=== PATIENT | female | born 1950 | race Caucasian/White ===

== ENCOUNTER 2022-07-06 14:04 | Outpatient (CLI) | payer MEDICARE, BC, SELFPAY ==
[2022-07-06 10:14] LABS: Albumin* 4.2 g/dL (3.3-5.0)
[2022-07-06 10:15] LABS: Chloride* 106 mmol/L (96-114); Potassium* 4.3 mmol/L (3.6-5.1); Sodium* 142 mmol/L (135-149)
[2022-07-06 10:17] LABS: Aspartate Amino Transferase* 22 U/L (12-35); Bilirubin Total* 0.6 mg/dL (0.1-1.5); Carbon Dioxide* 30 mmol/L (20-32); Cholesterol* 166 mg/dL (90-199); Creatinine* 0.7 mg/dL (0.5-1.5); Estimated Glomerular Filt Rate 92 ml/min; Total Protein* 6.6 g/dL (6.0-8.3)
[2022-07-06 10:18] LABS: Alanine Aminotransferase* 19 U/L (4-35); Alkaline Phosphatase* 59 U/L (40-150); Blood Urea Nitrogen* 11 mg/dL (7-30); Calcium* 9.1 mg/dL (8.4-10.6); Glucose* 105 mg/dL (60-115); HDL Cholesterol* 69 mg/dL (>=50); LDL Cholesterol Calculated 80 mg/dL (<100); Triglycerides* 87 mg/dL (40-149)
[2022-07-06 10:32] LABS: Creatinine Urine 157.1 mg/dL
[2022-07-06 10:36] LABS: Microalbumin Creatinine Ratio 0 mg/g (0-30); Microalbumin Urine 1 mg/dL
== END 2022-07-06 14:05 | disposition home or self-care (01) ==
PROVIDERS: PCP Family Medicine; Visit Provider Family Medicine
DX: Z00.00 Encounter for general adult medical examination without abnormal findings (principal); E78.5 Hyperlipidemia, unspecified; I10 Essential (primary) hypertension; E11.9 Type 2 diabetes mellitus without complications
CPT/HCPCS: 80053; 80061; 82043; 82570

== ENCOUNTER 2023-01-09 07:44 | Outpatient (CLI) | payer MEDICARE, BC, SELFPAY | END 2023-01-09 07:45 | disposition home or self-care (01) | LOC: NFLDREF 01-13 09:44 | PROVIDERS: PCP Family Medicine; Visit Provider Family Medicine | DX: E11.9 Type 2 diabetes mellitus without complications (principal); E78.5 Hyperlipidemia, unspecified; I10 Essential (primary) hypertension; E55.9 Vitamin D deficiency, unspecified | CPT/HCPCS: 80053; 80061; 82306 ==

== ENCOUNTER 2023-08-07 08:03 | Outpatient (CLI) | payer MEDICARE, BC, SELFPAY | END 2023-08-07 08:04 | disposition home or self-care (01) | LOC: NFLDREF 08-09 13:01 | PROVIDERS: PCP Family Medicine; Referring Provider Family Medicine; Visit Provider Family Medicine | DX: Z01.419 Encounter for gynecological examination (general) (routine) without abnormal findings (principal); E11.9 Type 2 diabetes mellitus without complications; E55.9 Vitamin D deficiency, unspecified; I10 Essential (primary) hypertension; E78.5 Hyperlipidemia, unspecified | CPT/HCPCS: 80048; 80053; 80061; 82043; 82306; 82570 ==

== ENCOUNTER 2023-10-25 08:23 | Outpatient (CLI) | payer MEDICARE, BC, SELFPAY | END 2023-10-25 08:24 | disposition home or self-care (01) | LOC: NFLDREF 10-27 10:24 | PROVIDERS: PCP Family Medicine; Referring Provider Family Medicine; Visit Provider Family Medicine | DX: I10 Essential (primary) hypertension (principal); E11.9 Type 2 diabetes mellitus without complications | CPT/HCPCS: 80048 ==

== ENCOUNTER 2023-11-29 07:57 | Outpatient (CLI) | payer MEDICARE, BC, SELFPAY ==
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
--- OUTSIDE RECORDS SUMMARY | 2023-12-01 07:42 | XMS_ITS | Continuity of Care Document ---
Author Name Unknown Organization [facility] Address [address] [place] [address] Phone Care Team Providers Care Keg Varnisher Name Role Phone Christian Dimas MD Unavailable Unavailable Allergies, Adverse Reactions, Alerts Substance Reaction Status Criticality No Known allergies Medications Medication Instructions Dosage Effective Dates (start - stop) Status Comments sulfasalazine 500 mg tablet,delayed release take 1000 mg BID - Active prednisone 5 mg tablet take 2 Tablet by oral route every morning 10 MG - Active Diprolene 0.05 % lotion apply by topical route every day for 14 days to the affected area(s) and massage lightly until the lotion disappears; amounts greater than50 ml per week should not be used. - Active metoprolol succinate ER 50 mg tablet,extended release 24 hr take 1 tablet by oral route 2 times every day 50 MG - Active Ocuvite Adult 50+ 250 mg-5 mg-1 mg capsule take one daily by mouth - Active Zyrtec 10 mg tablet take 1 Tablet by oral route every day 10 MG - Active Vitamin D3 2,000 unit capsule take 2 Capsule by Oral route every day 2 Capsule - Active sulfasalazine 500 mg tablet,delayed release 500 mg BID for 2 weeks and then 1000 mg BID - No Longer Active Procedures Procedure Date Office/Outpatient Visit, Est Office Consultation X-Ray Exam Of Foot 2v X-Ray Exam Of Foot 2v XRay Exam Of Hand 2v XRay Exam Of Hand 2v Routine Venipuncture Specimen Handling Complete Cbc WAuto Diff Wbc Rbc Sed Rate, Nonautomated CReactive Protein Assay Of Serum Albumin Assay Of Creatinine Transferase (Ast) (Sgot) Alanine Amino (Alt) (Sgpt) Advance Directives Directive Yes / No Effective Date File Name No Information Encounters Encounter Description Practice Location Reason(s) For Visit Diagnoses Date Provider Providers Copied on Encounter [facility] , [address], [place], [address], [place] tel:[phone] [facility] , No Information 4 Wing Gonzales. [facility] [address], [place], [address], [place]. tel:[phone] Office/Outpat ient Visit, Est [facility] , [address], [place], [address], [place] tel:[phone] [facility] , Inflammatory Polyarthropa thy (chief complaint) Psoriatic arthropathyO ther specified counselingTh erapeutic Drug MonitoringAb normal Liver Enzymes 4 Wing Gonzales. [facility] [address], [place], [address], [place]. tel:[phone] Referring Provider: Christian Harris [facility] [address], [place], [address]. tel:[phone] Office Consultation [facility] , [address], [place], [address], [place] tel:[phone] [facility] , Joint Pain (chief complaint) Other psoriasis and similar disordersHyp ertension, UnspecifiedO ther and unspecified hyperlipidem iaPain in joint involving multiple sites 4 Wing Gonzales. [facility] [address], [place], [address], [place]. tel:[phone] Referring Provider: Christian Harris, [facility] [address], [place], [address]. tel:[phone] [facility] , [address], [place], [address], [place] tel:[phone] [facility] , No Information 4 Wing Gonzales. [facility] [address], [place], [address], [place]. tel:[phone] Family History Family Member Type Diagnosis Age At Onset No Information Payers Payer name Insurance type Covered alliance party ID Mirella shipley(s) [facility] [id number] Social History Type Description Quantity Date Captured Comments Sex Female Smoking Status No Information Chief Complaint And Reason For Visit No Information Reason For Referral Reason For Referral No Information History Of Present Illness Encounter Date Complaint History Of Prese nt Illness No Information Functional Status Date Functional Assessmen t No Information Instructions Date Instruction Additional Infor mation No Information Assessments Type Assessment Date No Information Patient Care Teams Name Effective Dates (start - stop) Status Members No Information
== END 2023-11-29 07:58 | disposition home or self-care (01) ==
LOC: NFLDREF 12-01 07:40
PROVIDERS: PCP Family Medicine; Referring Provider Family Medicine; Visit Provider Family Medicine
DX: I10 Essential (primary) hypertension (principal)
CPT/HCPCS: 80048

== ENCOUNTER 2024-02-19 07:51 | Outpatient (CLI) | payer MEDICARE, BC, SELFPAY ==
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
--- OUTSIDE RECORDS SUMMARY | 2024-02-23 20:36 | XMS_ITS | Continuity of Care Document ---
Author Name Unknown Organization [facility] Address [address] [place] [address] Phone Care Team Providers Care Product Managent Intern Name Role Phone Christian Dimas MD Unavailable [...] [facility] , [address], [place], [address], [place] tel:[phone] [facility] , No Information [address] Wing Gonzales. [facility] [address], [place], [address], [place]. tel:[phone] Office/Outpat ient Visit, Est [facility] , [address], [place], [address], [place] tel:[phone] [facility] , Inflammatory Polyarthropa thy (chief complaint) Psoriatic arthropathyO ther specified counselingTh erapeutic Drug MonitoringAb normal Liver Enzymes 4 Wing Gonzales. [facility] [address], [place], [address], [place]. tel:[phone] Referring Provider: Christian Harris [facility] [address], [place], [address]. tel:[phone] Office Consultation [facility] , [address], [place], [address], [place] tel:[phone] [facility] , Joint Pain (chief complaint) Other psoriasis and similar disordersHyp ertension, UnspecifiedO ther and unspecified hyperlipidem iaPain in joint involving multiple sites 4 Wing Gonzales. [facility] [address], [place], [address], [place]. tel:[phone] Referring Provider: Christian Harris, [facility] [address], [place], [address]. tel:[phone] [facility] , [address], [place], [address], [place] tel:[phone] [facility] , No Information 4 Wing Gonzales. [facility] [address], [place], [address], [place]. tel:[phone] Family History Family Member Type Diagnosis Age At Onset No Information Payers Payer name Insurance type Covered democrat ID Mirella shipley(s) [facility] [id number] Social History Type Description Quantity Date Captured [...]
== END 2024-02-19 07:52 | disposition home or self-care (01) ==
LOC: NFLDREF 02-23 20:34
PROVIDERS: PCP Family Medicine; Referring Provider Family Medicine; Visit Provider Family Medicine
DX: E11.9 Type 2 diabetes mellitus without complications (principal); I10 Essential (primary) hypertension
CPT/HCPCS: 80048

== ENCOUNTER 2024-08-12 07:50 | Outpatient (CLI) | payer MEDICARE, BC, SELFPAY ==
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
--- OUTSIDE RECORDS SUMMARY | 2024-08-13 19:42 | XMS_ITS | Continuity of Care Document ---
Author Organization [facility] Address [address] [place] [address] Phone Care Team Providers Care Electroplater Helper Name Role Phone Christian Dimas MD Unavailable [...] [address], [place], [address], [place] tel:[phone] [facility] , No Information 4 Wing Gonzales. [facility] Stock [facility] [address], [place], [address], [place]. tel:[phone] Office/Outpat ient Visit, Est [facility] , [address], [place], [address], [place] tel:[phone] [facility] , Inflammatory Polyarthropa thy (chief complaint) Psoriatic arthropathyO ther specified counselingTh erapeutic Drug MonitoringAb normal Liver Enzymes 4 Wing Gonzales. [facility] [address], [place], [address], [place]. tel:[phone] Referring Provider: Christian Harris [facility] [address], [place], [address]. tel:[phone] Office Consultation [facility] , [address], [place], [address], [place] tel:[phone] [facility] , Joint Pain (chief complaint) Other psoriasis and similar disordersHyp ertension, UnspecifiedO ther and unspecified hyperlipidem iaPain in joint involving multiple sites 4 Wing Gonzales. [facility] [address], [place], [address], [place]. tel:[phone] Referring Provider: Christian Harris, [facility] [address], [place], [address]. tel:[phone] [facility] , [address], [place], [address], [place] tel:[phone] [facility] , No Information 4 Wing Gonzales. [facility] [address], [place], [address], [place]. tel:[phone] Family History Family Member Type Diagnosis Age At Onset No Information Payers Payer name Insurance type Covered green party ID Jeffa quinten(s) [facility] [id number] Social History Type Description Quantity Date Captured [...]
== END 2024-08-12 07:51 | disposition home or self-care (01) ==
LOC: NFLDREF 08-13 19:30
PROVIDERS: PCP Family Medicine; Referring Provider Family Medicine; Visit Provider Family Medicine
DX: E55.9 Vitamin D deficiency, unspecified (principal); E11.9 Type 2 diabetes mellitus without complications; E78.5 Hyperlipidemia, unspecified; I10 Essential (primary) hypertension; M81.0 Age-related osteoporosis without current pathological fracture
CPT/HCPCS: 80053; 80061; 82306; 84443

== ENCOUNTER 2025-08-15 07:54 | Outpatient (CLI) | payer MEDICARE, BC, SELFPAY | END 2025-08-15 07:55 | disposition home or self-care (01) | LOC: NFLDREF 08-18 15:56 | PROVIDERS: PCP Family Medicine; Referring Provider Family Medicine; Visit Provider Family Medicine | DX: E55.9 Vitamin D deficiency, unspecified (principal); I10 Essential (primary) hypertension; E78.5 Hyperlipidemia, unspecified | CPT/HCPCS: 80053; 80061; 82306 ==